=== PATIENT | female | born 1975 | race Caucasian/White ===

== ENCOUNTER 2017-04-19 15:36 | Emergency (ER) | payer OTHER ==
--- NOTE | ~2017-04-19 | CR127 ---
[facility] A Service of [facility] & [facility] RADIOLOGY TEXT RESULTS PATIENT: APOLINAR JOSEPH LOCATION: SED : 79 UNIT #: [id number] AGE: [address]: Precious dAhikari SEX: F ORDER DR: [id number] [address] [address] [id number] E MR#: [id number] Acc #: [id number] NAME: APOLINAR JOSEPH : 1975 SEX: F STUDY DATE/TIME: 04/19/2017 16:30 UNIT: SED ROOM: STUDY DESCRIPTION: CR Foot Complete Min 3 View Rt Attending Physician: Precious Adhikari Pa-C Ordering Physician: Precious Adhikari Pa-C Primary Care Physician: No Primary Care Physician MEDICAL IMAGING REPORT This report is preliminary unless electronic signature is present. EXAM 3 views of the right foot. Date: 04/19/2017 HISTORY Right foot and ankle pain after twisting foot in a hole on 03/01/2017. FINDINGS The tarsal, metatarsal, and phalangeal elements are all anatomically normal in position and alignment. There are no articular defects. No fractures or radiopaque foreign bodies in the soft tissues are apparent. IMPRESSION Normal foot. Dictated by... Ashley Villalpando M.D. THIS IS AN ELECTRONICALLY VERIFIED REPORT Ashley Villalpando M.D. at 04/21/2017 8:51 AM STEWART/radha TD: 04/20/2017 05:17 JOB #: [id number] MEDICAL IMAGING REPORT Page 1 of 1
--- NOTE | ~2017-04-19 | CR21 ---
[facility] A Service [facility] RADIOLOGY TEXT RESULTS PATIENT: APOLINAR JOSEPH LOCATION: SED : 79 UNIT #: [id number] AGE: [address]: Precious Adhikari PAC SEX: F ORDER DR: [id number] [address] [address] [id number] E MR#: [id number] Acc #: [id number] NAME: APOLINAR JOSEPH : 1975 SEX: F STUDY DATE/TIME: 04/19/2017 16:30 UNIT: SED ROOM: STUDY DESCRIPTION: CR Ankle Min 3 Views Rt Attending Physician: Precious Adhikari Pa-C Ordering Physician: Precious Adhikari Pa-C Primary Care Physician: No Primary Care Physician MEDICAL IMAGING REPORT This report is preliminary unless electronic signature is present. EXAM Three views right ankle. Date: 04/19/2017 HISTORY A 41-year-old female with right foot and ankle pain after twisting it in a hole lying 03/01/2017. COMPARISON None. FINDINGS There is a subtle cortical irregularity along the inferior tip of the lateral malleolus which could represent a subtle nondisplaced fracture. Mild ankle soft tissue swelling is suggested both medially and laterally. Base of fifth metatarsal is intact. No retained radiopaque foreign body is seen within the soft tissues. IMPRESSION 1. Questionable nondisplaced fracture of the tip of the lateral malleolus. Correlate to site of pain. 2. No joint dislocation. 3. Mild right ankle soft tissue swelling. Dictated by... Ashley Villalpando M.D. THIS IS AN ELECTRONICALLY VERIFIED REPORT Ashley Villalpando M.D. at 04/21/2017 8:51 AM [facility] A Service [facility] RADIOLOGY TEXT RESULTS PATIENT: APOLINAR JOSEPH LOCATION: SED : 77 UNIT #: [id number] AGE: [address]: Precious Adhikari PAC SEX: F ORDER DR: Chelsea TD: 04/20/2017 05:13 JOB #: [id number] MEDICAL IMAGING REPORT Page 1 of 1
[~2017-04-19 15:36] MED LIST: BIRTH CONTROL PILL PO
[2017-04-19] MEDS ORDERED: NO MEDICATIONS (15:38)
== END 2017-04-19 17:09 | disposition home or self-care (01) ==
LOC: SED 15:36
DX: S99.911A Unspecified injury of right ankle, initial encounter (principal); S99.921A Unspecified injury of right foot, initial encounter; F32.9 Major depressive disorder, single episode, unspecified; X50.1XXA Overexertion from prolonged static or awkward postures, initial encounter
CPT/HCPCS: 73610; 73630; 99283